=== PATIENT | female | born 1985 | race American Indian/Alaskan Native ===

== ENCOUNTER 2019-04-26 09:02 | Emergency (ER) | payer OTHER ==
[2019-04-26 09:10] VITALS: BP 131/80
[2019-04-26] MEDS ORDERED: TORADOL IM ONE (09:24)
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
[2019-04-26] MEDS ORDERED: IBUPROFEN PO ONE (09:29)
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
== END 2019-04-26 10:46 | disposition home or self-care (01) ==
LOC: ED 09:02
DX: S16.1XXA Strain of muscle, fascia and tendon at neck level, initial encounter (principal); G43.001 Migraine without aura, not intractable, with status migrainosus; M79.671 Pain in right foot; M25.511 Pain in right shoulder; M25.512 Pain in left shoulder; V49.49XA Driver injured in collision with other motor vehicles in traffic accident, initial encounter; Y93.89 Activity, other specified; Y92.89 Other specified places as the place of occurrence of the external cause; Y99.8 Other external cause status
CPT/HCPCS: 72040; J1885